=== PATIENT | female | born 1990 | race Caucasian/White ===

== ENCOUNTER 2021-11-29 15:15 | Emergency (ER) | payer OTHER ==
[2021-11-29 15:50] VITALS: BP 124/86; PULSE 83; RESP 15; TEMP 98.6; BMI 25.7
== END 2021-11-29 15:50 | disposition home or self-care (01) ==
LOC: FER 15:15
DX: Z00.00 Encounter for general adult medical examination without abnormal findings (principal)
CPT/HCPCS: 99281-25

== ENCOUNTER 2022-03-04 15:08 | Emergency (ER) | payer OTHER ==
[2022-03-04] MEDS ORDERED: ACETAMINOPHEN 325 MG TABLET (FP) PO ONE (16:04)
[2022-03-04 16:14] VITALS: BP 127/91; PULSE 83; RESP 20; TEMP 98.8; BMI 25.7
[2022-03-04] MEDS ORDERED: ACETAMINOPHEN 325 MG TABLET (FP) ONE (16:15)
== END 2022-03-04 16:18 | disposition home or self-care (01) ==
LOC: FER 15:08
DX: S16.1XXA Strain of muscle, fascia and tendon at neck level, initial encounter (principal); V49.40XA Driver injured in collision with unspecified motor vehicles in traffic accident, initial encounter
CPT/HCPCS: 99283-25

== ENCOUNTER 2022-07-15 02:20 | Emergency (ER) | payer OTHER ==
[2022-07-15] MEDS ORDERED: HIV POST EXPOSURE PROPHYLAXIS KIT NR ONE (03:25)
[2022-07-15] MEDS ORDERED: HIV POST EXPOSURE PROPHYLAXIS KIT PO ONE (03:56)
[2022-07-15 04:15] LABS: BASO % 0.6 % (0-2.0); EOS % 3.7 % (0-4.5); HEMATOCRIT 40.5 % (32.4-45.2); HEMOGLOBIN 13.7 GM/dL (10.7-15.3); LYMPH % 22.2 % (8-40); MCH 29.8 pg (25.7-33.7); MEAN CELL VOLUME 87.7 fl (80-96); MEAN PLT VOLUME 8.7 fl (7.5-11.1); MONO % 11.4 % (3.8-10.2); NEUT % 62.1 % (42.8-82.8); PLATELET COUNT 292 10^3/uL (134-434); RBC 4.61 M/mm3 (3.60-5.2); RDW 12.9 % (11.6-15.6); WHITE BLOOD COUNT 12.1 K/mm3 (4.0-10.0)
[2022-07-15 04:30] LABS: POTASSIUM 4.1 mmol/L (3.5-5.1)
[2022-07-15 04:32] LABS: CALCIUM 9.5 mg/dL (8.5-10.1)
[2022-07-15 04:33] LABS: ALBUMIN 4.2 g/dl (3.4-5.0); BLOOD UREA NITROGEN 15.3 mg/dL (7-18)
[2022-07-15 04:36] LABS: CREATININE 0.9 mg/dL (0.55-1.3)
[2022-07-15 04:37] LABS: TOT PROT 7.7 g/dl (6.4-8.2)
[2022-07-15 04:38] LABS: BILIRUBIN,TOTAL 0.3 mg/dL (0.2-1)
[2022-07-15 04:48] VITALS: BP 122/76; PULSE 86; RESP 18; TEMP 97.8; BMI 25.0
[2022-07-15 12:09] LABS: HIV INTERPRETATION NEGATIVE (NEGATIVE)
== END 2022-07-15 05:01 | disposition home or self-care (01) ==
LOC: JER 02:20
DX: B19.10 Unspecified viral hepatitis B without hepatic coma (principal); Z77.21 Contact with and (suspected) exposure to potentially hazardous body fluids
CPT/HCPCS: 36415; 80053; 84703; 85025; 86705; 87389; 87517; 87522; 99283-25

== ENCOUNTER 2023-01-17 23:23 | Emergency (ER) | payer OTHER ==
[2023-01-17 23:39] VITALS: BP 145/94; PULSE 91; RESP 16; TEMP 98.2; BMI 24.9
[2023-01-17] MEDS ORDERED: DIPHTH,PERTUSS(ACELL),TET 0.5 ML DISP.SYRIN IM ONE ×2 (23:45→23:53)
== END 2023-01-18 00:25 | disposition home or self-care (01) ==
LOC: FER 23:23
PROC: 3E0234Z Introduction of Serum, Toxoid and Vaccine into Muscle, Percutaneous Approach (ICD-10-PCS; principal; 2023-01-17)
DX: S91.131A Puncture wound without foreign body of right great toe without damage to nail, initial encounter (principal); M79.674 Pain in right toe(s); W45.0XXA Nail entering through skin, initial encounter
CPT/HCPCS: 73660-TC-FY; 90715; 99283-25

== ENCOUNTER 2023-04-08 02:54 | Emergency (ER) | payer OTHER ==
[2023-04-08 03:04] VITALS: BP 123/84; PULSE 70; RESP 18; TEMP 98.1; BMI 23.6
== END 2023-04-08 03:28 | disposition home or self-care (01) ==
LOC: FER 02:54
DX: M53.3 Sacrococcygeal disorders, not elsewhere classified (principal); W01.198A Fall on same level from slipping, tripping and stumbling with subsequent striking against other object, initial encounter
CPT/HCPCS: 99282-25